=== PATIENT | female | born 1975 | race Caucasian/White ===

== ENCOUNTER 2025-01-04 21:26 | Emergency (ER) | payer MEDICARE, SELFPAY ==
[2025-01-04 21:46] VITALS: BP 158/98; PULSE 113; RESP 16; TEMP 36.7; O2SAT 99
--- OUTSIDE RECORDS SUMMARY | 2025-01-04 21:59 | XMS_ITS | Patient Health Record ---
Author Organization [facility] Address [address] [place] [address] Care Team Providers Care [employer] Name Role Phone Matthew Perkins Unavailable [phone] Reason For Referral No Information Plan Of Treatment No Information
--- NOTE | 2025-01-04 23:59 | ED_ITS ---
Documented by User: [email or web address] Givens 01/05/25 00:01 HPI - Dental/Oral General: Chief complaint: Dental/Oral Stated complaint: Tooth hurting bad Time Seen by Provider: 01/04/25 21:51 Source: patient Mode of arrival: ambulatory Limitations: no limitations History of Present Illness: Patient is a 49-year-old female who presents to the emergency department complaining of right lower dental pain and facial swelling for the past few days. States that she had a filling on 12/23, she has had pain since but it got much worse Monday morning. No fevers, no trouble swallowing. States pain radiates up towards her ear, she tried calling the dentist but they told her to come to the emergency department. No other symptoms at this time. MD Complaint: tooth pain Onset (ago): day(s) Duration: constant Severity: severe Context: other (Recent dental procedure) Associated symptoms: Denies ear or mastoid pain or fever(s) Related Data Previous Rx's ?Medication ?Instructions ?Recorded amoxicillin 875 mg-potassium 1 tab PO BID 7 days #14 t abs 01/04/25 clavulanate 125 mg tablet Allergies Allergy/AdvReac Type Severity Reaction Status Date / Time No Known Allergies Allergy Verified 12/31/24 13:41 Review of Systems General: Reports: 10 or more systems reviewed and unremarkable except in HPI and below Const: Denies: fever(s), chills or fatigue Eyes: Denies: change in vision ENMT: Reports: mouth pain, dental pain and sinus pain; Denies: throat pain, ear or mastoid pain or nasal discharge Card: Denies: chest pain, palpitations, swelling of feet/ankles or lightheadedness Resp: Denies: dyspnea, productive cough or wheezing GI: Denies: abdominal pain, nausea, vomiting, diarrhea or constipation : Denies: flank pain, difficulty voiding, dysuria or urinary frequency Musc: Denies: neck pain, back pain or joint pain Skin/Breast: Denies: rash Neuro: Denies: headache(s), numbness in extremities or weakness in extremities Physical Exam Const: COMMON NORMALS: no acute distress and no limitations GENERAL AP PEARANCE: cooperative, comfortable and well developed ORIENTATION/CONSCIOUSNESS: Yes awake HENMT: COMMON NORMALS: normocephalic, atraumatic and hearing grossly normal bilaterally HEAD & SCALP: normocephalic and atraumatic OTHER: Absence of teeth to right lower area, there is gingival edema associated and severe tenderness to palpation. Mild swelling noted to the right face with tenderness to palpation. Eye: COMMON NORMALS: Equal, round and reactive pupils present, EOMs intact bilaterally and conjunctivae normal CONJUNCTIVA: Yes conjunctivae normal PUPIL: Yes Equal, round and reactive pupils present Neck/C-Spine: COMMON NORMALS: full ROM, supple and no JVD Resp: COMMON NORMALS: normal respiratory effort, No retractions, No use of accessory muscles and clear to auscultation bilaterally AUSCULTATION: clear to auscultation bilaterally Cardio: COMMON NORMALS: no JVD, regular rate, regular rhythm, No clicks present (Cardio), No murmurs present (Cardio) and No rub (Cardio) RATE: regular rate RHYTHM: regular rhythm Extremity: COMMON NORMALS: normal to inspection, full ROM and capillary refill normal Skin: COMMON NORMALS: no rashes or lesions noted GENERAL SKIN EXAM: no rashes or lesions noted Course Vital Signs: Vital signs: Vital Signs Temperature 98.0 F 01/04/25 21:46 Pulse Rate 113 H 01/04/25 21:46 Respiratory Rate 16 01/04/25 21:46 Blood Pressure 158/98 01/04/25 21:46 Pulse Oximetry 99 01/04/25 21:46 [facility] - Dental/Oral Medical Decision Making I suspect dental abscess with her facial symptoms and gingival edema, will treat with Augmentin and she is to follow-up with dentist next week for further evaluation. Decadron given here, as well as Toradol. She is sent home with a couple of Fitzwilliam for breakthrough pain. She had no systemic symptoms to report. No trouble swallowing or airway compromise. No radiology studies performed this visit Discharge Plan Discharge Patient Disposition: Home Clinical Impression: Dental abscess Condition: Stable Prescriptions: New amoxicillin-pot clavulanate 875-125 mg tablet 1 tab PO BID 7 Days Qty: 14 0RF Discontinued amoxicillin 875 mg tablet 875 mg PO BID 10 Days Qty: 20 0RF Discharge Orders: Discharge ED (Routine); Ordered 01/04/25 Ordered By: Nirmal Aguirre Referrals: Gal Velazquez MD [Family Provider, Family Practice] Patient Instructions: Opioid Safety, Pain Management, Patient Portal & Janae Instructions Activity Restrictions/Additional Instructions: Dental abscess care These instructions explain the diagnosis, medicines given today, how to take the prescribed antibiotics and pain medicine, warning signs, and why seeing the dentist next week is essential. Diagnosis and what to expect - A dental abscess is an infection around a tooth. It can cause pain, swelling, and sometimes fever. The infection improves fastest when a dentist removes the source (for example, drainage, root canal, or extraction). - Antibiotics help when there is spreading or systemic involvement, but they do not replace dental procedures. Close follow-up with the dentist next week is critical for full cure. Medicines started today - Amoxicillin?clavulanate (Augmentin): Take as prescribed, typically 500/125 mg by mouth three times daily. Take with food and a full glass of water. Continue until 24 hours after all symptoms (fever, swelling, significant pain) have resolved, up to the duration prescribed, unless told otherwise. - Common side effects: stomach upset, diarrhea, rash. Seek care for severe diarrhea (possible C. difficile), hives, trouble breathing, or facial/lip swelling. - If symptoms are not improving within 48?72 hours, or if they worsen, contact the dentist/clinic; therapy may need to be adjusted (for example, adding metronidazole or switching agents) and dental drainage may be needed. - Pain control: - First choice: ibuprofen 400 mg every 6?8 hours as needed, or naproxen sodium 440 mg, if no kidney disease, ulcer, bleeding risk, or blood thinner conflicts. Combining ibuprofen (400?600 mg) with acetaminophen (500?1,000 mg) can improve relief. Do not exceed 2,400 mg/day ibuprofen or 4,000 mg/day acetaminophen from all sources. - Hydrocodone?acetaminophen (Fitzwilliam): Use only for breakthrough pain not controlled by the above. Use the lowest dose, fewest tablets, and for the shortest time, typically no more than 3 days. Track total daily acetaminophen (including Fitzwilliam) to stay under 4,000 mg/day. - Medications given in the emergency department: - Dexamethasone (Decadron): A single dose can reduce pain at about 12 hours but does not change pain after 24?72 hours. No further steroid is planned unless instructed. - Ketorolac (Toradol): An anti-inflammatory for short-term pain relief today. Wait at least 6?8 hours before taking another NSAID like ibuprofen unless told otherwise. Home care - Rest, keep head elevated to reduce swelling. - Soft foods, plenty of fluids. Avoid very hot/cold foods if they worsen pain. - Gentle rinses with warm salt water (? teaspoon salt in 8 oz warm water) 3?4 times daily can help comfort. Do not use alcohol-based mouthwash on the sore area. - Do not apply heat to the face; cool compresses may help swelling. - Do not smoke or vape; this slows healing. Dental follow-up is essential - See the dentist next week for definitive treatment (for example, drainage, root canal, or extraction). This is the kearney step to cure the infection and prevent complications. - If the referral cannot occur within 2?3 days or pain is not easing over time, call to expedite care. Warning signs?seek urgent care now or call 911 - Fever, chills, or feeling very ill; worsening facial or neck swelling; trouble swallowing, drooling, voice changes, or difficulty opening the mouth; new numbness or spreading redness; eye swelling/vision changes; or any trouble breathing. Antibiotic stewardship notes - Antibiotics are used when needed for spreading infection/systemic symptoms, but dental procedures are the main treatment. Unnecessary antibiotics can cause side effects and resistance. - Do not skip doses, do not share, and do not save leftover pills. Dispose of unused opioids and antibiotics safely. Alternatives and adjustments (for allergies or lack of response) - If there is a penicillin allergy without anaphylaxis, cephalexin may be used; if severe allergy, azithromycin or clindamycin are options, though clindamycin carries higher C. difficile risk and azithromycin has higher resistance. Dentists may add metronidazole or switch to amoxicillin?clavulanate if first- line therapy fails. These choices are individualized by the dentist based on response and risk. - For pain if NSAIDs are contraindicated, acetaminophen alone is preferred, with careful opioid-sparing use only if needed and for a very short duration. Why this plan - NSAIDs with or without acetaminophen are first-line for dental pain and are safer and often more effective than opioids for short-term relief. - A single dose of dexamethasone can modestly reduce pain at 12 hours but is not needed routinely beyond that. - Definitive dental treatment resolves the source of infection; antibiotics are an adjunct when there is systemic involvement or risk of spread. Print Language: Irish Coding Level of Care Code ED Doctor Assistant for Chg Fwd Documented by User: Scott Arrieta DO 01/05/25 03:01 HPI - Dental/Oral General: Chief complaint: Dental/Oral Stated complaint: Tooth hurting bad Time Seen by Provider: 01/04/25 21:51 Related Data Previous Rx's ?Medication ?Instructions ?Recorded amoxicillin 875 mg-potassium 1 tab PO BID 7 days #14 t abs 01/04/25 clavulanate 125 mg tablet Allergies Allergy/AdvReac Type Severity Reaction Status Date / Time No Known Allergies Allergy Verified 12/31/24 13:41 Course Vital Signs: Vital signs: Vital Signs Temperature 98.0 F 01/04/25 21:46 Pulse Rate 113 H 01/04/25 21:46 Respiratory Rate 16 01/04/25 21:46 Blood Pressure 158/98 01/04/25 21:46 Pulse Oximetry 99 01/04/25 21:46 [facility] - Dental/Oral Medical Decision Making I suspect dental abscess with her facial symptoms and gingival edema, will treat with Augmentin and she is to follow-up with dentist next week for further evaluation. Decadron given here, as well as Toradol. She is sent home with a couple of Fitzwilliam for breakthrough pain. She had no systemic symptoms to report. No trouble swallowing or airway compromise. This patient was originally seen by Mr. Timothy PA-C. I agree with his history, evaluation, and management. Discharge Plan Discharge Patient Disposition: Home Clinical Impression: Dental abscess Condition: Stable Prescriptions: New amoxicillin-pot clavulanate 875-125 mg tablet 1 tab PO BID 7 Days Qty: 14 0RF Discontinued amoxicillin 875 mg tablet 875 mg PO BID 10 Days Qty: 20 0RF Discharge Orders: Discharge ED (Routine); Ordered 01/04/25 Ordered By: Nirmal Aguirre Referrals: Gal Velazquez MD [Family Provider, Family Practice] Patient Instructions: Opioid Safety, Pain Management, Patient Portal & Janae Instructions Activity Restrictions/Additional Instructions: Dental abscess care These instructions explain the diagnosis, medicines given today, how to take the prescribed antibiotics and pain medicine, warning signs, and why seeing the dentist next week is essential. Diagnosis and what to expect - A dental abscess is an infection around a tooth. It can cause pain, swelling, and sometimes fever. The infection improves fastest when a dentist removes the source (for example, drainage, root canal, or extraction). - Antibiotics help when there is spreading or systemic involvement, but they do not replace dental procedures. Close follow-up with the dentist next week is critical for full cure. Medicines started today - Amoxicillin?clavulanate (Augmentin): Take as prescribed, typically 500/125 mg by mouth three times daily. Take with food and a full glass of water. Continue until 24 hours after all symptoms (fever, swelling, significant pain) have resolved, up to the duration prescribed, unless told otherwise. - Common side effects: stomach upset, diarrhea, rash. Seek care for severe diarrhea (possible C. difficile), hives, trouble breathing, or facial/lip swelling. - If symptoms are not improving within 48?72 hours, or if they worsen, contact the dentist/clinic; therapy may need to be adjusted (for example, adding metronidazole or switching agents) and dental drainage may be needed. - Pain control: - First choice: ibuprofen 400 mg every 6?8 hours as needed, or naproxen sodium 440 mg, if no kidney disease, ulcer, bleeding risk, or blood thinner conflicts. Combining ibuprofen (400?600 mg) with acetaminophen (500?1,000 mg) can improve relief. Do not exceed 2,400 mg/day ibuprofen or 4,000 mg/day acetaminophen from all sources. - Hydrocodone?acetaminophen (Fitzwilliam): Use only for breakthrough pain not controlled by the above. Use the lowest dose, fewest tablets, and for the shortest time, typically no more than 3 days. Track total daily acetaminophen (including Fitzwilliam) to stay under 4,000 mg/day. - Medications given in the emergency department: - Dexamethasone (Decadron): A single dose can reduce pain at about 12 hours but does not change pain after 24?72 hours. No further steroid is planned unless instructed. - Ketorolac (Toradol): An anti-inflammatory for short-term pain relief today. Wait at least 6?8 hours before taking another NSAID like ibuprofen unless told otherwise. Home care - Rest, keep head elevated to reduce swelling. - Soft foods, plenty of fluids. Avoid very hot/cold foods if they worsen pain. - Gentle rinses with warm salt water (? teaspoon salt in 8 oz warm water) 3?4 times daily can help comfort. Do not use alcohol-based mouthwash on the sore area. - Do not apply heat to the face; cool compresses may help swelling. - Do not smoke or vape; this slows healing. Dental follow-up is essential - See the dentist next week for definitive treatment (for example, drainage, root canal, or extraction). This is the kearney step to cure the infection and prev ent complications. - If the referral cannot occur within 2?3 days or pain is not easing over time, call to expedite care. Warning signs?seek urgent care now or call 911 - Fever, chills, or feeling very ill; worsening facial or neck swelling; trouble swallowing, drooling, voice changes, or difficulty opening the mouth; new numbness or spreading redness; eye swelling/vision changes; or any trouble breathing. Antibiotic stewardship notes - Antibiotics are used when needed for spreading infection/systemic symptoms, but dental procedures are the main treatment. Unnecessary antibiotics can cause side effects and resistance. - Do not skip doses, do not share, and do not save leftover pills. Dispose of unused opioids and antibiotics safely. Alternatives and adjustments (for allergies or lack of response) - If there is a penicillin allergy without anaphylaxis, cephalexin may be used; if severe allergy, azithromycin or clindamycin are options, though clindamycin carries higher C. difficile risk and azithromycin has higher resistance. Dentists may add metronidazole or switch to amoxicillin?clavulanate if first- line therapy fails. These choices are individualized by the dentist based on response and risk. - For pain if NSAIDs are contraindicated, acetaminophen alone is preferred, with careful opioid-sparing use only if needed and for a very short duration. Why this plan - NSAIDs with or without acetaminophen are first-line for dental pain and are safer and often more effective than opioids for short-term relief. - A single dose of dexamethasone can modestly reduce pain at 12 hours but is not needed routinely beyond that. - Definitive dental treatment resolves the source of infection; antibiotics are an adjunct when there is systemic involvement or risk of spread. Print Language: Irish Coding Level of Care Code ED Doctor Assistant for Sudarshan Blue
[2025-01-05] MEDS: HYDROcodone-acetaminophen 7.5-325 mg Tablet 2 TAB PO (00:13)
== END 2025-01-05 00:25 | disposition home or self-care (01) ==
PROVIDERS: Emergency Provider Physician Assistant
DX: K04.7 Periapical abscess without sinus (principal)
CPT/HCPCS: 96372; 99284; J1100; J1885; J9999